=== PATIENT | male | born 1960 | race Caucasian/White ===

== ENCOUNTER 2017-01-17 11:23 | Emergency (ER) | payer SELFPAY ==
[~2017-01-17] VITALS: Ht 160 cm; Wt 111.5 kg
[2017-01-17 11:27] VITALS: Ht 160 cm; Wt 111.5 kg
[2017-01-17] MEDS ORDERED: KETOROLAC 60 MG INJ IM STA (12:41)
--- NOTE | 2017-01-17 12:47 | ERD ---
ER Documentation Chief Complaint Date/Time DATE: 01/17/17 TIME: 12:41 Chief Complaint CAME IN VIA INTAKE DUE TO BILATERAL ARM PAIN DUE TO LIFTING HPI Patient is a 57-year-old male who has bilateral elbow pain worse on the right. There is no trauma. Pain is been for 3 days after lifting heavy boxes at work. He has not taken any medication for pain. Denies numbness or tingling but states the pain often radiates up to his shoulder and down to his right arm. Denies any loss of range of motion. ROS All systems reviewed and are negative except as per history of present illness. FmHx Family History: No diabetes Physical Exam Vitals Vital Signs Date Time Temp Pulse Resp B/P Pulse Ox O2 Delivery O2 Flow Rate FiO2 01/17/17 11:27 98.5 94 18 163/97 98 Physical Exam General: well developed, well nourished, alert, nontoxic, no distress Head: normocephalic, atraumatic Neck: Supple, nontender, no lymphadenopathy, no midline tenderness Respiratory: Clear to auscaultation bilaterally, speaks in full sentences, no use of accesory muscles or labored breathing, no rales, ronchi, or wheezing Cardiovascular: RRR, No murmurs tact Extremities: Bilateral upper extremities have full range of motion active passively and against resistance in the bilateral elbows, there is no tenderness to palpation throughout the bilateral elbows, no bony abnormalities with knees bilaterally, sensation to light touch intact throughout bilaterally. Procedures/MDM Patient has bilateral elbow pain. There is no trauma. He is neurovascular intact. He has full range of motion against resistance in the affected joints and he is completely nontender. There is very low suspicion for fracture and there is therefore no imaging was ordered he was given Toradol here in the emergency room and discharged with anti-inflammatories and pain medication. Recommended this patient follow up with her primary care doctor within 48 hours or return to the emergency room for any worsening of symptoms. However this time I do believe there is suitable for outpatient management. I answered all their questions and they agreed with the plan and were discharged home. Departure Diagnosis: Primary Impression: Elbow pain Condition: Stable KIRILL LACEY PA-C Jan 17, 2017 12:47
[2017-01-17] MEDS ORDERED: HYDR-906 PO (12:48)
[2017-01-17] MEDS ORDERED: IBUP800T25 PO (12:48)
== END 2017-01-17 13:20 | disposition home or self-care (01) ==
LOC: FTE 11:23
DX: M25.522 Pain in left elbow (principal); M25.521 Pain in right elbow; I10 Essential (primary) hypertension; F17.210 Nicotine dependence, cigarettes, uncomplicated
CPT/HCPCS: 99283; J1885